=== PATIENT | male | born 1970 | race African-American/Black ===

== ENCOUNTER 2019-01-04 02:56 | Emergency (ER) | payer BC ==
[2019-01-04] MEDS ORDERED: Ketorolac 60 MG/2 ML SDV IM ONE (03:23)
--- NOTE | 2019-01-04 03:49 | EDM.PDOC ---
<Walker Cherry - Last Filed: 01/04/19 05:55> ED HPI GENERAL MEDICAL PROBLEM - General Chief Complaint: Lower Extremity Injury/Pain Stated Complaint: AMB Time Seen by Provider: 01/04/19 03:00 - History of Present Illness INITIAL COMMENTS - FREE TEXT/NARRATIVE: HISTORY AND PHYSICAL: History of present illness: 48-year-old male with no significant past medical history or recent trauma was brought in tonight per EMS for the evaluation of right hip pain. Patient stated that he first developed the right lateral hip pain on Monday which progressed to he was 4 out of 5 and sharp shooting however he was able to go to work. He got off of work Monday morning at midnight and went to sleep. Patient was awoken from sleep with 10 out of 10 sharp shooting pain to his right lateral hip and called 911. Patient denies any recent fevers or chills. He has no loss of bladder or bowel control. Review of systems: As per history of present illness and below otherwise all systems reviewed and negative. Past medical history: As per history of present illness and as reviewed below otherwise noncontributory. Surgical history: As per history of present illness and as reviewed below otherwise noncontributory. Social history: No reported history of drug or alcohol abuse. Family history: As per history of present illness and as reviewed below otherwise noncontributory. Physical exam: Constitutional: Well developed well nourished, non toxic appearing. HEENT: Atraumatic, normocephalic, pupils reactive, negative for conjunctival pallor or scleral icterus, mucous membranes moist, throat clear, neck supple, nontender, trachea midline. Lungs: Clear to auscultation, breath sounds equal bilaterally, chest nontender. Heart: S1S2, regular, negative for clicks, rubs, or JVD. Abdomen: Soft, nondistended, nontender. Negative for masses or hepatosplenomegaly. Negative for costovertebral tenderness. Pelvis: Stable nontender. Genitourinary: Deferred. Rectal: Deferred. Extremities: No obvious deformity noted to the lower extremity. There is no internal or external rotation of the hip. Starting at inguinal ligament there is a mild amount of swelling of the anterior quadriceps which does not extend to the knee. Physical examination is difficult as the patient will guard with passive range of motion. The patient grimaces with external rotation of the hip. His active range of motion is limited as he is only able to flex his knee to approximately 30 degrees prior to reproducing his pain. There is no warmth to the affected limb. Tenderness present upon palpation right lateral thigh. Peripheral pulses intact. Doppler pulse strong Neuro: Awake, alert, oriented. Cranial nerves II through XII unremarkable. Cerebellum unremarkable. Motor and sensory unremarkable throughout. Exam nonfocal. Diagnostics: Xray- Hip with pelvis, CBC, CMP, CRP, CPK, Sedrate, CT of hip with contrast. Therapeutics: 60mg Toradol Impression: Right Hip Pain likely musculoskeletal with abnormal CT. Plan: Patient's case was shared with [facility] orthopedic surgeon. A referral to orthopedics will be made and the patient is to follow up as an outpatient. He will be sent home with a prescription for Diclofenac and tramadol as well as crutches. The patient is to be non weight baring to the affected limb. Follow up instructions included in discharge summary. Definitive disposition and diagnosis as appropriate pending reevaluation and review of above. Right Leg Pain Score (Numeric/FACES): 10 - Related Data Allergies Allergy/AdvReac Type Severity Reaction Status Date / Time No Known Allergies Allergy Verified 01/04/19 03:03 Home Meds: Home Meds . [No Known Home Meds] 01/04/19 [History] Past Medical History - Past Health History Medical/Surgical History: Denies Medical/Surgical History - Infectious Disease History Infectious Disease History: Reports: None Social & Family History - Family History Family Medical History: Noncontributory - Tobacco Use Smoking Status *Q: Never Smoker Second Hand Smoke Exposure: No - Caffeine Use Caffeine Use: Reports: None - Recreational Drug Use Recreational Drug Use: No Course - Vital Signs Last Recorded V/S: Last Vital Signs Temp 36.2 C 01/04/19 03:03 Pulse 77 01/04/19 03:03 Resp 16 01/04/19 03:03 BP 142/86 H 01/04/19 03:03 Pulse Ox 98 01/04/19 03:03 - Orders/Labs/Meds Orders: Active Orders 24 hr Category Date Time Status Sodium Chloride 0.9% [Saline Flush] Med 01/04/19 04:32 Active 10 ml FLUSH ASDIRECTED PRN Sodium Chloride 0.9% [Saline Flush] Med 01/04/19 04:32 Active 2.5 ml FLUSH ASDIRECTED PRN DME for Discharge [COMM] Stat Ot 01/04/19 05:51 Ordered Saline Lock Insert [OM.PC] Stat Ot 01/04/19 04:32 Ordered Medication Orders Sodium Chloride (Saline Flush) 10 ml FLUSH ASDIRECTED PRN PRN Reason: Keep Vein Open Sodium Chloride (Saline Flush) 2.5 ml FLUSH ASDIRECTED PRN PRN Reason: Keep Vein Open Labs: Laboratory Tests 01/04/19 01/04/19 Range/Units 03:30 03:30 WBC 7.14 (4.0-11.0) K/uL RBC 4.37 L (4.50-5.90) M/uL Hgb 13.8 (13.0-17.0) g/dL Hct 39.8 (38.0-50.0) % MCV 91.1 (80.0-98.0) fL MCH 31.6 (27.0-32.0) pg MCHC 34.7 (31.0-37.0) g/dL RDW Std Deviation 45.7 (28.0-62.0) fl RDW Coeff of Jarad 14 (11.0-15.0) % Plt Count 198 (150-400) K/uL MPV 9.20 (7.40-12.00) fL Neut % (Auto) 39.9 L (48.0-80.0) % Lymph % (Auto) 47.5 H (16.0-40.0) % [place] % (Auto) 11.9 (0.0-15.0) % Eos % (Auto) 0.6 (0.0-7.0) % Baso % (Auto) 0.1 (0.0-1.5) % Neut # (Auto) 2.9 (1.4-5.7) K/uL Lymph # (Auto) 3.4 H (0.6-2.4) K/uL [place] # (Auto) 0.9 H (0.0-0.8) K/uL Eos # (Auto) 0.0 (0.0-0.7) K/uL Baso # (Auto) 0.0 (0.0-0.1) K/uL Nucleated RBC % 0.0 /100WBC Nucleated RBCs # 0 K/uL ESR 4 (0-14) mm/hr Sodium 141 (136-148) mmol/L Potassium 3.8 (3.5-5.1) mmol/L Chloride 105 (98-107) mmol/L Carbon Dioxide 26.8 (21.0-32.0) mmol/L BUN 16 (7.0-18.0) mg/dL Creatinine 0.9 (0.8-1.3) mg/dL Est Cr Clr Drug Dosing 99.29 mL/min Estimated GFR (MDRD) > 60.0 ml/min Glucose 93 (74-106) mg/dL Calcium 8.7 (8.5-10.1) mg/dL Total Bilirubin 0.6 (0.2-1.0) mg/dL AST 16 (15-37) IU/L ALT 27 (14-63) IU/L Alkaline Phosphatase 59 (46-116) U/L Creatine Kinase 135 (26-308) U/L C-Reactive Protein 0.40 (0.00-0.90) mg/dL Total Protein 7.0 (6.4-8.2) g/dL Albumin 3.7 (3.4-5.0) g/dL Globulin 3.3 (2.6-4.0) g/dL Albumin/Globulin Ratio 1.1 (0.9-1.6) Meds: Medications Generic Name Dose Route Start Last Admin Trade Name Freq PRN Reason Stop Dose Admin Sodium Chloride 10 ml 01/04/19 04:32 Saline Flush FLUSH ASDIRECTED PRN Keep Vein Open Sodium Chloride 2.5 ml 01/04/19 04:32 Saline Flush FLUSH ASDIRECTED PRN Keep Vein Open Discontinued Medications Generic Name Dose Route Start Last Admin Trade Name Freq PRN Reason Stop Dose Admin Ketorolac Tromethamine 60 mg 01/04/19 03:23 01/04/19 03:34 Toradol IM 01/04/19 03:24 60 mg ONETIME ONE Administration Departure - Departure Disposition: Home, Self-Care 01 Clinical Impression: Right hip pain - Discharge Information Referrals: PCP,None [Primary Care Provider] - Forms: ED Department Discharge Additional Instructions: The following information is given to patients seen in the emergency department who are being discharged to home. This information is to outline your options for follow-up care. We provide all patients seen in our emergency department with a follow-up referral. The need for follow-up, as well as the timing and circumstances, are variable depending upon the specifics of your emergency department visit. If you don't have a primary care physician on staff, we will provide you with a referral. We always advise you to contact your personal physician following an emergency department visit to inform them of the circumstance of the visit and for follow-up with them and/or the need for any referrals to a consulting specialist. The emergency department will also refer you to a specialist when appropriate. This referral assures that you have the opportunity for followup care with a specialist. All of these measure are taken in an effort to provide you with optimal care, which includes your followup. Under all circumstances we always encourage you to contact your private physician who remains a resource for coordinating your care. When calling for followup care, please make the office aware that this follow-up is from your recent emergency room visit. If for any reason you are refused follow-up, please contact the [facility] emergency department at and ask to speak to the emergency department charge nurse. [facility]--Orthopedic [place] [address] Use crutches and do not weight-bear until you're followed up in the clinic would try to range of motion and move the hip when you're seated or in bed. You have been given medications given to you from [facility], tramadol/Ultram and diclofenac/Voltaren, to take as needed for pain but only take the tramadol/ Ultram while you're at home. Please connect with our orthopedics clinic for follow-up care or with Dr. Hill at [facility] as he was contacted about you from the ER. Return to ER as needed and as discussed - My Orders Last 24 Hours: My Active Orders 01/04/19 04:32 Sodium Chloride 0.9% [Saline Flush] 10 ml FLUSH ASDIRECTED PRN Sodium Chloride 0.9% [Saline Flush] 2.5 ml FLUSH ASDIRECTED PRN Saline Lock Insert [OM.PC] Stat 01/04/19 05:51 DME for Discharge [COMM] Stat - Assessment/Plan Last 24 Hours: My Active Orders 01/04/19 04:32 Sodium Chloride 0.9% [Saline Flush] 10 ml FLUSH ASDIRECTED PRN Sodium Chloride 0.9% [Saline Flush] 2.5 ml FLUSH ASDIRECTED PRN Saline Lock Insert [OM.PC] Stat 01/04/19 05:51 DME for Discharge [COMM] Stat <Stacie Cesar - Last Filed: 01/04/19 06:03> ED HPI GENERAL MEDICAL PROBLEM - History of Present Illness INITIAL COMMENTS - FREE TEXT/NARRATIVE: Dr. Cesar dictating addendum note as I'm the supervising physician on this case. I agree with history and physical as above and the patient went to work and worked his shift then came home at about midnight and then went to sleep and when he went to sleep his pain was off 4 or 5 out of 10. He awoke with the pain intensified and he called EMS to come here because any movement makes the pain worse. He denies any trauma to the area and he tells me he did not take any [id number] medications for pain such as Motrin or Tylenol. He has had no systemic complaints such as fevers chills nausea vomiting and he doesn't have any neurosensory changes in his leg. He says that movements trigger it and when he stays still it is much better. He has no back pain and the pain is mostly localized with movement of his hip. On my physical examination the patient does not allow me to passively move the hip and resists that. At the proximal anterior thigh there seems to be some soft tissue swelling at the compartment is soft and there is no warmth or erythema fluctuance or ecchymosis. The bony architecture of the right hip and pelvis appear to be intact and I cannot appreciate any gross swelling of the lateral hip nor any warmth. The remainder of his exam is as above and is without significant findings. He is not febrile here in the ED. We will give him Toradol IM to start out and do some labs including inflammatory markers and x-rays. All of his inflammatory markers and labs are within normal limits including the x-rays. At this point we are unable to do an ultrasound of his hip to see if there is any joint effusion that we are not appreciating on exam and the patient again is not toxic or showing any signs of sepsis. We will reevaluate his pain and if it's persisting we will proceed to do a CT scan with contrast as at this point this is our only modality for further evaluation. After the CT scan results were obtained Dr. Hill at [facility] was contacted as he is heart surgeon for orthopedics and the case was discussed with him at 5:45 AM. He was read the CT scan results directly and he is aware that all lab tests were within normal limits. He says that the patient could be followed up in the clinic and that the CT scan does not appear to be causing him the pain and as there is no joint effusion he is not concerned about emergent need for further orthopedic care this morning. He says the patient can follow-up with him in the clinic or with our orthopedics clinic. This information was given to the patient and he was given crutches to not weight-bear until he follows up. He's also been told to do passive range of motion and to use medications, diclofenac and tramadol, given to him from [facility]. Review of Systems - Review of Systems Review Of Systems: ROS reveals no pertinent complaints other than HPI. ED EXAM, GENERAL - Physical Exam Exam: See Below (See dictation) Departure - Departure Time of Disposition: 06:02 Condition: Good
[2019-01-04 03:59] LABS: CHLORIDE,CL 105 mmol/L (98-107); SODIUM,NA 141 mmol/L (136-148)
--- NOTE | 2019-01-04 04:15 | CR ---
INDICATION: Hip pain, no injury TECHNIQUE: Pelvis radiograph, Hip radiograph 3 views right COMPARISON: None FINDINGS: Bone: A small osteochondroma seen along the lateral cortex of the proximal right femur measuring 9 mm. Joint: The hip joint is unremarkable. The visualized sacroiliac joints are unremarkable in appearance. The pubic symphysis is normal in appearance. Soft tissue: Unremarkable. The visualized bowel gas pattern of the pelvis is unremarkable in appearance. No radiopaque foreign bodies are seen. IMPRESSION: 1. A small osteochondroma seen along the lateral cortex of the proximal right femur measuring 9 mm. Dictated by Zach Mcgarry MD @ 01/04/2019 4:13:44 AM Dictated by: Zach Mcgarry MD @ 01/04/2019 04:13:50 (Electronically Signed)
[2019-01-04] MEDS ORDERED: Sodium Chloride 0.9% 2.5 ML Syringe FLUSH PRN (04:32)
[2019-01-04] MEDS ORDERED: Sodium Chloride 0.9% 10 ML Syringe FLUSH PRN (04:32)
--- NOTE | 2019-01-04 05:29 | CT ---
INDICATION: Hip pain. Concern for septic hip. COMPARISON: Plain film 04 January 2019. TECHNIQUE: 100 mL Isovue-370 IV contrast. Axial coronal and sagittal formats of the right hip. FINDINGS: Right hip is appropriately aligned. No hip joint effusion. Mild osteoarthritis joint space narrowing. Subtle osteophytes of the superior acetabulum and superior femoral head. No erosion. Well-defined but somewhat heterogeneously dense mineralized focus at the posterior margin of the proximal femoral metaphysis 15 mm in greatest diameter. No medullary continuity are cortical continuity with the underlying femur. There is a small roughly a 4-5 mm curvilinear focus of patchy relative diminished density of the posterior peripheral femoral cortex at the interface (image 71 series 202). No significant surrounding a fluid attenuation or inflammatory attenuation. IMPRESSION: 1. Mild osteoarthritis right hip with no findings for septic arthritis. 2. Juxta cortical mineralization focus posterior proximal femoral metaphysis with small focus of relative demineralization lucency in the peripheral cortex at its base. This may be posttraumatic heterotopic ossification if there is history of trauma to this area. A juxtacortical chondroma and parosteal osteosarcoma are in the differential. Unusual presentation of hydroxyapatite deposition is a consideration although usually there is no cortical change with its etiology. Given somewhat unusual appearance, consider surgical referral for management guidance and interval followup with CT or further characterization with MRI if not addressed surgically. Please note that all CT scans at this facility use dose modulation, iterative reconstruction, and/or weight-based dosing when appropriate to reduce radiation dose to as low as reasonably achievable. Dictated by Sergio Han MD @ Jan 04 2019 8:13AM Signed by Dr. Sergio Han @ Jan 04 2019 8:25AM
== END 2019-01-04 06:20 | disposition home or self-care (01) ==
LOC: MW.ED 02:56
DX: M25.551 Pain in right hip (principal)
CPT/HCPCS: 36415; 73502; 73701; 80053; 82550; 85025; 85652; 86140; 96372; 99284; J1885